=== PATIENT | male | born 1975 | race Caucasian/White ===

== ENCOUNTER 2022-01-30 09:34 | Outpatient (CLI) | payer BC | END 2022-01-30 09:35 | disposition home or self-care (01) | LOC: CSHLAB 09:34 | PROVIDERS: ATTEND Surgery | DX: Z20.822 Contact with and (suspected) exposure to COVID-19 (principal); K42.9 Umbilical hernia without obstruction or gangrene | CPT/HCPCS: 87811 ==

== ENCOUNTER 2022-02-01 08:14 | Day surgery (SDC) | payer BC ==
[2022-01-31 09:12] VITALS: BMI 33.6
[2022-02-01] MEDS ORDERED: Lidocaine 1% MPF 2 ML VIAL ONE (09:48)
[2022-02-01] MEDS ORDERED: Bupivacaine PF 0.5% 30 ML VIAL ONE (09:57)
[2022-02-01] MEDS ORDERED: SUGAMMADEX SODIUM 200 MG/2 ML VIAL ONE (09:57)
[2022-02-01] MEDS ORDERED: Midazolam HCl 2 mg/2 ml Vial ONE ×2 (10:24→10:30)
[2022-02-01] MEDS ORDERED: Lidocaine 1% PF 5 ML VIAL ONE (10:30)
[2022-02-01] MEDS ORDERED: Ondansetron PF 4 MG/2 ML Vial ONE (10:30)
[2022-02-01] MEDS ORDERED: Rocuronium Bromide 10 MG/ML (10ML VIAL) ONE (10:30)
[2022-02-01] MEDS ORDERED: Acetaminophen 325 MG TAB PO PRN (10:30)
[2022-02-01] MEDS ORDERED: PROPOFOL 20 ML ONE (10:30)
[2022-02-01] MEDS ORDERED: HYDROcodone/Acetaminophen 5/325 mg Tablet PO PRN (10:30)
[2022-02-01] MEDS ORDERED: Dexamethasone 20 MG/5 ML VIAL ONE (10:30)
[2022-02-01] MEDS ORDERED: Fentanyl 100 MCG/2 ML VIAL ONE (10:30)
[2022-02-01] MEDS ORDERED: Ketorolac Tromethamine 30 MG/ML VIAL ONE (10:31)
[2022-02-01] MEDS ORDERED: Lidocaine 4% PF 5 ML AMP ONE (10:31)
[2022-02-01] MEDS ORDERED: CEFAZOLIN 2 GM VIAL ONE (10:35)
[2022-02-01] MEDS ORDERED: EPINEPHrine 1 MG/ML AMP ONE (11:00)
== END 2022-02-01 12:35 | disposition home or self-care (01) ==
LOC: CSHSDC 08:14
PROVIDERS: ATTEND Surgery
PROC: 0WQF0ZZ Repair Abdominal Wall, Open Approach (ICD-10-PCS; principal; 2022-02-01)
DX: K42.0 Umbilical hernia with obstruction, without gangrene (principal); I10 Essential (primary) hypertension; E78.1 Pure hyperglyceridemia; K21.9 Gastro-esophageal reflux disease without esophagitis; F41.9 Anxiety disorder, unspecified; I83.91 Asymptomatic varicose veins of right lower extremity; J30.9 Allergic rhinitis, unspecified; G43.909 Migraine, unspecified, not intractable, without status migrainosus; Z79.899 Other long term (current) drug therapy; Z88.6 Allergy status to analgesic agent; Z87.891 Personal history of nicotine dependence; Z20.822 Contact with and (suspected) exposure to COVID-19; Z98.890 Other specified postprocedural states
CPT/HCPCS: J0171; J0690; J1100; J1885; J2250; J2405; J2704; J3010; S0020